=== PATIENT | male | born 1960 | race Caucasian/White ===

== ENCOUNTER 2016-05-25 11:46 | Emergency (ER) | payer BC ==
--- NOTE | 2016-06-02 21:19 | ER ---
ADMIT: 05/25/2016 RM/LOC: ER [facility] MR#: [id number] [id number] ANEL BARNETT [address] [place] [address] Emergency Room Report SEX: M AGE: 55 : 1960 DATE: 05/25/2016 ADDENDUM: CHIEF COMPLAINT: Shortness of breath. HISTORY OF PRESENT ILLNESS: This is a 55-year-old male who had an allergic reaction and actually went to [facility]. At that time about a week ago, they held his lisinopril. Today, he took all his medications at 10 a.m., which included Advil, Aleve, aspirin, metformin, metoprolol, allopurinol, ferritin, and amlodipine within about half an hour. He started to have swelling to his lips and his tongue. The same thing that happened a week or 2 ago. He did also eat a couple bananas. He does not know it is causing the symptoms. PAST MEDICAL HISTORY: Diabetes, hypertension, and gout. MEDICATIONS: Please see nurse's note. ALLERGIES: NO KNOWN ALLERGIES. SOCIAL HISTORY: Denies any tobacco, drug, or alcohol use. FAMILY HISTORY: Noncontributory. REVIEW OF SYSTEMS: CONSTITUTIONAL: Denies any fevers, chills, or sweats. CARDIOVASCULAR/RESPIRATORY: Denies any chest pain, but does have shortness of breath. ENT: Feels like his tongue and posterior part of his throat is swelling. All systems otherwise negative. PHYSICAL EXAMINATION: VITAL SIGNS: Blood pressure is 162/95, pulse is 89, respirations 18, temperature is 98.3, and saturation of oxygen is 99% on room air. GENERAL APPEARANCE: He is in moderate distress. HEENT: He is very erythemic into the face and swollen. His lips were swollen. Tongue is swollen. Posterior uvula and pharynx are also swollen, but I am able to see the posterior part of the throat without difficulty. HEART: Regular rate and rhythm. ADMIT: 05/25/2016 RM/LOC: [facility] MR#: [id number] [id number] ANEL BARNETT [address] [place] [address] Emergency Room Report SEX: M AGE: 55 : 1960 LUNGS: Decreased bilateral. No wheezing. ABDOMEN: Soft, nontender. No distention. Skin is normal color, warm, and dry. No rashes noted except for the redness in the face. EXTREMITIES: No rashes to extremities. No pedal edema. COURSE IN THE EMERGENCY ROOM: He was given a total of Decadron 20 mg IV, Benadryl 50 mg IV, and natural epinephrine 1 mg IM. The patient feels significantly better. He is going to go home. I spoke with Mohini Solorio regarding the patient. She will follow up in 2 days as scheduled with the patient. CLINICAL IMPRESSION: Angioedema. ADRIANNA Castro / Marlon Rubio MD / venkatal JOB #: [id number] CC: Marlon Rubio MD, Attending Physician UNKNOWN, Family Physician
== END 2016-05-25 15:10 | disposition home or self-care (01) ==
LOC: ER 11:46
DX: T78.3XXA Angioneurotic edema, initial encounter (principal); E11.9 Type 2 diabetes mellitus without complications; I10 Essential (primary) hypertension